=== PATIENT | female | born 1995 | race Caucasian/White ===

== ENCOUNTER 2018-07-08 19:20 | Inpatient (IN) ==
[2018-07-08] MEDS ORDERED: Naloxone Inj 0.4 MG/ML Vial IV.PUSH PRN (20:31)
[2018-07-08] MEDS ORDERED: Sodium Chlor 0.9% Inj 500 ML IV.SIG PRN (20:31)
[2018-07-08] MEDS ORDERED: Sod Chloride 0.9% Inj 1,000 ML IV.CONT PRN (20:31)
[2018-07-08] MEDS ORDERED: Oxytocin 30 Units/500ml Premix 30 UNITS/500 ML BAG IV.SIG ONE (20:31)
[2018-07-08] MEDS ORDERED: fentaNYL Citrate Inj 100 MCG/2 ML Ampul IV.PUSH PRN ×2 (20:31)
--- NOTE | 2018-07-08 20:31 | ED ---
History of Present Illness Primary Care Physician: NOT REQUIRED Chief Complaint: labor induction History of Present Illness: 22-year-old female at 40/6 weeks gestation, who is otherwise healthy, presents to the OB ED for induction of labor. Patient denies feeling contractions, gush of fluid, vaginal bleeding or decreased movement. Denies headache, sudden change in vision, nausea, vomiting, abdominal pain, dysuria, leg pain or swelling. OB history: No complications during this . labs negative. GBS negative. Past medical history: Remote history of chlamydia with test of cure. Medications: PNV Allergies: None Hospitalizations: None Surgical history: None Family history: Mother and father both alive and healthy. Half brother, healthy. Social history: Non-smoker. Denies alcohol or drug use during this , however stated in history PCP: Dr. Kwok Weeks Gestation:: 40 Para: 0 : 1 - Inpatient Certification I certify that the inpatient services were ordered in accordance with Medicare regulations governing the order. This includes certification that hospital inpatient services are reasonable and necessary and in the case of services not specified as inpatient-only under 42 CFR 419.22(n), that they are appropriately provided as inpatient services in accordance to with the 2-midnight benchmark under 43 CFR 412.3(e) Review of Systems Constitutional: Denies fever(s), Denies headache(s) Eyes: Reports blurry vision, Reports requires corrective lenses, Denies change in vision Ears, Nose, Mouth, and Throat: Denies sore throat Cardiovascular: Denies chest pain, Denies leg swelling Respiratory: Denies cough, Denies shortness of breath Gastrointestinal: Denies abdominal pain, Denies nausea, Denies vomiting Genitourinary: Denies difficulty urinating, Denies painful urination, Denies vaginal discharge PMFSH - History History Provided By: Patient, Family Member - Medical / Surgical Hx Neg / Unobtainable Medical Problems Denied: Yes Surgical History: No Previous Surgery - Social History I have reviewed the patient's Social History: Yes - Tobacco History Second Hand Smoke Exposure: No Smoking Status: Former smoker - Alcohol History How Often Do You Have a Drink Containing Alcohol: Never - Substance Use History 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 SKIN: Warm and dry. HEAD: Normocephalic and atraumatic. EYES: No scleral icterus. No injection or drainage. ENT: No nasal drainage noted. Airway patent. CARDIOVASCULAR: Regular rate and rhythm without murmur. RESPIRATORY: Breath sounds equal bilaterally. No accessory muscle use. ABDOMEN/GI: Abdomen soft, non-tender, bowel sounds present, no rebound, no guarding Gravid to 40 weeks size GENITOURINARY: Cervix: Middle Dilatation: 3 Effacement: 30% Station: -3 Membranes: intact Uterine Contractions: every 5-7 mins FHT's: Category: 1 Baseline: 130s Reactive: Yes Variability: Moderate Decels: None, occasional accelerations EXTREMITIES: No cyanosis or edema. BACK: Nontender without obvious deformity. No CVA tenderness. NEUROLOGICAL: Awake and alert. Motor and sensory grossly within normal limits. Five out of 5 muscle strength in all muscle groups. Normal speech. Results - Labs CBC & Chem 7: 07/08/18 19:45 Assessment and Plan - Diagnosis (1) 40 weeks gestation of Code(s): Z3A.40 - 40 weeks gestation of Status: Acute (2) Elective induction of labor planned Status: Acute - Plan 22-year-old at 40/6 weeks gestation presents for induction of labor. -Continuous monitoring showed FHT category 1, reassuring. -Cervical check: 10/15/-3 -Admit to labor and delivery for expectant management SDW Dr. Shah OB hospitalist, Dr. Manley Discharge Plan - Physicians Team Primary Care Provider: NOT REQUIRED, Attending Provider: Martha Manley - Rxs /Orders / Referrals /Forms Prescriptions: No Action Multivitamins 1 tab PO DAILY Referrals: NOT REQUIRED, [Primary Care Provider] - See Instructions
[2018-07-08] MEDS ORDERED: Citric Acid/Sodium Citrate Liq 30 ML UDC PO SCH (20:45)
[2018-07-08 21:00] LABS: Baso # (Auto) 0.1 th/mm3 (0.0-0.2); Baso % (Auto) 0.5 % (0.0-2.0); Eos # (Auto) 0.2 th/mm3 (0.0-0.4); Eos % (Auto) 1.4 % (0.0-4.0); Hematocrit 36.1 % (35.0-46.0); Hemoglobin 12.3 gm/dL (11.6-15.3); Lymph # (Auto) 2.1 th/mm3 (1.0-4.8); Lymph % (Auto) 17.8 % (9.0-44.0); Mean Corpuscular HGB Conc 34.1 % (32.0-36.0); Mean Corpuscular Hemoglobin 31.5 pg (27.0-34.0); Mean Corpuscular Volume 92.3 fL (80.0-100.0); Mean Platelet Volume 10.2 fL (7.0-11.0); Mono # (Auto) 0.8 th/mm3 (0.0-0.9); Neut # (Auto) 8.5 th/mm3 (1.8-7.7); Neut % (Auto) 73.3 % (16.0-70.0); Platelet Count 199 th/mm3 (150-450); Red Blood Count 3.91 mil/mm3 (4.00-5.30); Red Cell Distribution Width 13.6 % (11.6-17.2); White Blood Count 11.6 th/mm3 (4.0-11.0)
[2018-07-08 21:17] LABS: Amorphous Sediment,Urine Rare /hpf; Bacteria,Urine Rare /hpf; Bilirubin,Urine Negative (Negative); Clarity,Urine Cloudy (Clear); Color,Urine Yellow (Yellw/Straw); Glucose,Urine (UA) Negative (Negative); Leukocyte Esterase,Urine Large (Negative); Mucus,Urine Few /lpf (Occasional); Nitrite,Urine Negative (Negative); Specific Gravity,Urine 1.008 (1.002-1.035); Squamous Epithelial Cell,Urine 13 /hpf (0-5)
[2018-07-09] MEDS ORDERED: Oxytocin 30 Units/500ml Premix 30 UNITS/500 ML BAG IV.SIG PRN (10:53)
--- NOTE | 2018-07-09 10:53 | P.OBLABOR ---
Subjective Interval history: 22 yo in labor, feels well, no concerns Objective Vital Signs: Vital Signs - 8 hr 07/09/18 06:38 07/09/18 08:01 Temperature 98.8 F Pulse Rate 92 H 90 Respiratory Rate 18 Blood Pressure 100/65 108/65 Objective: Pelvic Exam: Cervix: [-] Dilatation: [-] Effacement: [-] Station: [-] Presentation: [-] Membranes: [intact or ruptured] Uterine Contractions: [-] FHT's: Category: [-] Baseline: [-] Reactive: [-] Variability: [-] Decels: [-] Patient Started Active Labor: Yes Medical Induction of Labor: Yes (Cytotec) Artificial Rupture of Membrane: Yes Artificial ROM Date: 07/09/18 Artificial ROM Time: 10:45 Assessment and Plan - Diagnosis (1) 40 weeks gestation of Code(s): Z3A.40 - 40 weeks gestation of Status: Acute (2) Elective induction of labor planned Status: Acute - Plan 22-year-old at 40/6 weeks gestation presents for induction of labor. -Continuous monitoring showed FHT category 1, reassuring. -Cervical check: 4-/-2 -AROM performed with clear fluid -Start oxytocin 08/20/29 protocol
[2018-07-09] MEDS ORDERED: fentaNYL 2MCG-Bupiv 0.125% Epi 150 ML EPIDURAL ONE (11:00)
[2018-07-09] MEDS ORDERED: fentaNYL Citrate Inj 100 MCG/2 ML Ampul EPIDURAL ONE (19:17)
[2018-07-09] MEDS ORDERED: fentaNYL 2MCG-Bupiv 0.125% Epi 150 ML EPIDURAL PRN (19:17)
[2018-07-09] MEDS ORDERED: Bisacodyl 10 MG Supp RECTAL PRN (22:56)
[2018-07-09] MEDS ORDERED: Naloxone Inj 0.4 MG/ML Vial IV.PUSH PRN (22:56)
[2018-07-09] MEDS ORDERED: Benzocaine 20% Top Spray 60 ML Can TOPICAL PRN (22:56)
[2018-07-09] MEDS ORDERED: Oxytocin 30 Units/500ml Premix 30 UNITS/500 ML BAG IV.CONT PRN (22:56)
[2018-07-09] MEDS ORDERED: Witch Hazel 50%/Glyderin 12.5% 40 Pad Jar RECTAL PRN (22:56)
[2018-07-09] MEDS ORDERED: Zolpidem Tartrate 5 MG Tablet PO PRN (22:56)
--- NOTE | 2018-07-09 23:08 | P.OBDELI ---
Weeks Gestation: 41 Medical Induction of Labor: Yes (Cytotec, Pitocin) Artificial ROM Date: 07/09/18 Artificial ROM Time: 11:45 Anesthesia: Epidural Episiotomy: none Vaginal Delivery: Normal Presentation: Occiput anterior Nuchal Cord: None Placenta: Spontaneous delivery Laceration: 2 deg Repair: Chromic running Estimated blood loss (mL): 200 Infant: Male Infant Delivery Date: 07/09/18 Infant Delivery Time: 22:08 Weight: 3.125 kg score (1 min): 8 score (5 min): 9 Additional Information: Attending myself - Dr. Garcia in attendance of delivery and repair
[2018-07-10] MEDS ORDERED: Measles/Mumps/Rubella Vaccine Inj 0.5 ML Vial SQ ONE (06:00)
[2018-07-10] MEDS ORDERED: Diphtheria/Tetanus/Pertussis Vaccine Inj 0.5 ML Syringe IM ONE (06:00)
--- NOTE | 2018-07-10 07:59 | P.PNOB ---
Subjective Post day: 1 Interval history: 22 yo s/p vaginal delivery at 41 weeks gestation (induced for dates). Feeling well just sleepy. No CP/SOB. No N/V, tolerating diet. Ambulating without difficulty. Breast feeding and bonding well with baby. VB moderate and improving. Pain well controlled. Objective Vital Signs/I&O: Vital Signs 07/09/18 08:01 07/09/18 10:46 07/09/18 11:39 Temperature 99.2 F Pulse Rate 90 96 H Respiratory Rate Blood Pressure 108/65 131/90 07/09/18 12:45 07/09/18 13:15 07/09/18 13:30 Temperature Pulse Rate 104 H 102 H 92 H Respiratory Rate Blood Pressure 119/84 118/94 H 122/76 07/09/18 13:37 07/09/18 13:46 07/09/18 13:55 Temperature Pulse Rate 98 H 100 H 96 H Respiratory Rate Blood Pressure 138/91 H 130/73 122/76 07/09/18 13:58 07/09/18 14:10 07/09/18 14:15 Temperature Pulse Rate 90 92 H 91 H Respiratory Rate Blood Pressure 125/80 130/74 127/78 07/09/18 14:25 07/09/18 14:40 07/09/18 14:45 Temperature Pulse Rate 87 91 H 91 H Respiratory Rate Blood Pressure 133/80 110/65 07/09/18 15:00 07/09/18 15:15 07/09/18 15:55 Temperature 98.3 F Pulse Rate 85 84 91 H Respiratory Rate Blood Pressure 107/53 L 104/59 L 116/70 07/09/18 16:35 07/09/18 16:45 07/09/18 17:05 Temperature Pulse Rate 87 84 93 H Respiratory Rate Blood Pressure 115/74 122/79 123/80 07/09/18 17:35 07/09/18 17:43 07/09/18 18:15 Temperature 98.8 F Pulse Rate 89 133 H Respiratory Rate Blood Pressure 113/88 132/89 07/09/18 18:30 07/09/18 18:45 07/09/18 19:05 Temperature Pulse Rate 58 L 82 161 H Respiratory Rate 18 Blood Pressure 115/85 144/79 H 130/94 H 07/09/18 19:08 07/09/18 19:55 12/22/18 20:10 Temperature 99.4 F Pulse Rate 96 H 106 H Respiratory Rate Blood Pressure 113/64 07/09/18 20:40 07/09/18 21:25 07/09/18 21:40 Temperature Pulse Rate 86 110 H 90 Respiratory Rate Blood Pressure 124/52 L 07/09/18 21:57 07/09/18 23:15 07/09/18 23:16 Temperature 101.0 F H 101.3 F H Pulse Rate 109 H Respiratory Rate 18 Blood Pressure 123/71 07/09/18 23:30 07/09/18 23:45 07/10/18 00:00 Temperature Pulse Rate 106 H 91 H 91 H Respiratory Rate 18 Blood Pressure 125/60 139/70 126/75 07/10/18 00:15 07/10/18 01:06 07/10/18 02:15 Temperature 99.2 F 99.5 F Pulse Rate 91 H 69 Respiratory Rate 18 Blood Pressure 134/76 124/77 07/10/18 04:00 Temperature 99.1 F Pulse Rate Respiratory Rate Blood Pressure Result Diagrams: 07/08/18 19:45 Objective Remarks: GENERAL: Well-nourished, well-developed patient. CARDIOVASCULAR: Regular rate and rhythm without murmurs, gallops, or rubs. RESPIRATORY: Breath sounds equal bilaterally. No accessory muscle use. ABDOMEN/GI: Abdomen soft, non-tender. Fundus: Firm, non-tender at umbilicus. GENITOURINARY: Light to moderate bleeding. EXTREMITIES: No cyanosis or edema, non-tender, without signs of DVT. Medications and IVs: Active Medications Acetaminophen (Tylenol) 650 mg PO Q4H PRN PRN Reason: PAIN SCALE 1 TO 2 Al Hydroxide/Mg Hydroxide (Milk Of Magnesia Liq) 30 ml PO Q12H PRN PRN Reason: Mild Constipation Benzocaine (Americaine 20% [place]) 1 spray TOPICAL Q4H PRN PRN Reason: For Perineum Discomfort Last Admin: 07/10/18 02:14 Dose: 1 spray Bisacodyl (Dulcolax Supp) 10 mg RECTAL DAILY PRN PRN Reason: SEVERE CONSITIPATION Cephalexin Monohydrate (Keflex) 500 mg PO Q12H LOU Last Admin: 07/09/18 23:30 Dose: 500 mg Ephedrine Sulfate (Ephedrine/Ns Syringe) 10 mg IV.PUSH UNSCH PRN PRN Reason: SEE LABEL COMMENTS Stop: 07/10/18 19:17 Oxytocin (Pitocin 30 Units/Ns 500 Ml Premix) 30 units in 500 mls @ 2 mls/hr IV.SIG TITRATE PRN; Protocol PRN Reason: For induction of labor Last Admin: 07/09/18 11:42 Dose: 2 milliunit/min, 2 mls/hr Fentanyl/Bupivacaine/Sodium Chlor (Fentanyl 2 Mcg-Bupiv 0.125% Epi) 150 mls @ 10 mls/hr EPIDURAL PRN PRN PRN Reason: for Labor Pain Last Admin: 07/09/18 19:15 Dose: 10 mls/hr Oxytocin (Pitocin 30 Units/Ns 500 Ml Premix) 30 units in 500 mls @ 100 mls/hr IV.CONT UNSCH PRN PRN Reason: Heavy bleeding Ibuprofen (Motrin) 800 mg PO Q8H PRN PRN Reason: For Cramping Last Admin: 07/10/18 02:12 Dose: 800 mg Lactulose (Lactulose Liq) 30 ml PO DAILY PRN PRN Reason: SEVERE CONSITIPATION Miscellaneous Information (Misc Nursing Information) 1 each OTHER UNSCH LOU Stop: 07/10/18 20:30 Misoprostol (Cytotec) 25 mcg VAGINAL UNSCH X1 PRN PRN Reason: For cervical ripening Last Admin: 07/09/18 02:30 Dose: 25 mcg Naloxone HCl (Narcan Inj) 0.1 mg IV.PUSH Q2M PRN PRN Reason: for opiate reversal Naloxone HCl (Narcan Inj) 0.1 mg IV.PUSH Q2M PRN PRN Reason: for opiate reversal Ondansetron HCl (Zofran Odt) 4 mg PO Q6H PRN PRN Reason: NAUSEA OR VOMITING Oxycodone/Acetaminophen (Percocet 5/325 Mg) 2 tab PO Q4H PRN PRN Reason: PAIN SCALE 6 TO 10 Oxycodone/Acetaminophen (Percocet 5/325 Mg) 1 tab PO Q4H PRN PRN Reason: PAIN SCALE 3 TO 5 Senna/Docusate Sodium (Valeria-Colace) 1 tab PO BID LOU Sennosides (Senokot) 17.2 mg PO Q12H PRN PRN Reason: Moderate Constipation Sodium Chloride (Ns Flush) 2 ml IV.FLUSH BID LOU Last Admin: 07/09/18 23:20 Dose: Not Given Sodium Chloride (Ns Flush) 2 ml IV.FLUSH PRN PRN PRN Reason: FLUSH AFTER USING IV ACCESS Sodium Chloride (Ns Flush) 2 ml IV.FLUSH BID LOU Sodium Chloride (Ns Flush) 2 ml IV.FLUSH PRN PRN PRN Reason: FLUSH AFTER USING IV ACCESS Witch Sandra/Glycerin (Tucks Pads) 1 applicatio RECTAL QID PRN PRN Reason: HEMORRHOIDS Last Admin: 07/10/18 02:14 Dose: 1 applicatio Zolpidem Tartrate (Ambien) 5 mg PO HS PRN PRN Reason: SLEEP Assessment and Plan - Diagnosis (1) care following vaginal delivery Code(s): Z39.2 - Encounter for routine follow-up Status: Acute (2) 40 weeks gestation of Code(s): Z3A.40 - 40 weeks gestation of Status: Resolved (3) Elective induction of labor planned Status: Resolved - Plan 22-year-old s/p IVD at 41 weeks - 2nd degree lac healing well - AFVSS - Had intrapartum fever to 101, receiving Keflex 500 mg BID for now, no subsequent fevers - Motrin + Percocet PRN for pain - Pelvic rest x 6 weeks - Contraception: TBD - Ambulate as tuan
[2018-07-10] MEDS: Senna/Docusate Sodium 8.6/50 MG Tablet PO SCH ×2 (10:11→22:58)
[2018-07-10] MEDS: Acetaminophen 325 MG Tablet PO PRN ×2 (17:54→23:03)
--- NOTE | 2018-07-11 08:23 | P.PNOB ---
Subjective Post day: 2 Interval history: 22 yo s/p induced vaginal delivery at 41 weeks. This morning feels well. Pain well controlled with ibuprofen. Bleeding same as a period and decreasing. No fever/chills. No difficulty ambulating. Tolerating diet. Breast feeding and bonding well with baby. Objective Vital Signs/I&O: Vital Signs 07/10/18 08:23 07/10/18 18:05 07/10/18 20:05 Temperature 98.1 F 98.0 F 98.5 F Pulse Rate 83 97 H Respiratory Rate 16 20 Blood Pressure 111/64 133/77 Result Diagrams: 07/08/18 19:45 Objective Remarks: GENERAL: Well-nourished, well-developed patient. CARDIOVASCULAR: Regular rate and rhythm without murmurs, gallops, or rubs. RESPIRATORY: Breath sounds equal bilaterally. No accessory muscle use. ABDOMEN/GI: Abdomen soft, non-tender. Fundus: Firm, non-tender at 2 cm below umbilicus. GENITOURINARY: Light to moderate bleeding. EXTREMITIES: No cyanosis or edema, non-tender, without signs of DVT. Medications and IVs: Active Medications Acetaminophen (Tylenol) 650 mg PO Q4H PRN PRN Reason: PAIN SCALE 1 TO 2 Last Admin: 07/10/18 23:03 Dose: 650 mg Al Hydroxide/Mg Hydroxide (Milk Of Devin Marie[place]) 30 ml PO Q12H PRN PRN Reason: Mild Constipation Benzocaine (Americaine 20% Top [place]) 1 spray TOPICAL Q4H PRN PRN Reason: For Perineum Discomfort Last Admin: 07/10/18 02:14 Dose: 1 spray Bisacodyl (Dulcolax Supp) 10 mg RECTAL DAILY PRN PRN Reason: SEVERE CONSITIPATION Cephalexin Monohydrate (Keflex) 500 mg PO Q12H LOU Last Admin: 07/10/18 22:58 Dose: 500 mg Oxytocin (Pitocin 30 Units/Ns 500 Ml Premix) 30 units in 500 mls @ 2 mls/hr IV.SIG TITRATE PRN; Protocol PRN Reason: For induction of labor Last Admin: 07/09/18 11:42 Dose: 2 milliunit/min, 2 mls/hr Fentanyl/Bupivacaine/Sodium Chlor (Fentanyl 2 Mcg-Bupiv 0.125% Epi) 150 mls @ 10 mls/hr EPIDURAL PRN PRN PRN Reason: for Labor Pain Last Admin: 07/09/18 19:15 Dose: 10 mls/hr Oxytocin (Pitocin 30 Units/Ns 500 Ml Premix) 30 units in 500 mls @ 100 mls/hr IV.CONT UNSCH PRN PRN Reason: Heavy bleeding Ibuprofen (Motrin) 800 mg PO Q8H PRN PRN Reason: For Cramping Last Admin: 07/10/18 17:54 Dose: 800 mg Lactulose (Lactulose Liq) 30 ml PO DAILY PRN PRN Reason: SEVERE CONSITIPATION Misoprostol (Cytotec) 25 mcg VAGINAL UNSCH X1 PRN PRN Reason: For cervical ripening Last Admin: 07/09/18 02:30 Dose: 25 mcg Naloxone HCl (Narcan Inj) 0.1 mg IV.PUSH Q2M PRN PRN Reason: for opiate reversal Naloxone HCl (Narcan Inj) 0.1 mg IV.PUSH Q2M PRN PRN Reason: for opiate reversal Ondansetron HCl (Zofran Odt) 4 mg PO Q6H PRN PRN Reason: NAUSEA OR VOMITING Oxycodone/Acetaminophen (Percocet 5/325 Mg) 2 tab PO Q4H PRN PRN Reason: PAIN SCALE 6 TO 10 Oxycodone/Acetaminophen (Percocet 5/325 Mg) 1 tab PO Q4H PRN PRN Reason: PAIN SCALE 3 TO 5 Senna/Docusate Sodium (Valeria-Colace) 1 tab PO BID [facility] Last Admin: 07/10/18 22:58 Dose: 1 tab Sennosides (Senokot) 17.2 mg PO Q12H PRN PRN Reason: Moderate Constipation Sodium Chloride (Ns Flush) 2 ml IV.FLUSH BID [facility] Last Admin: 07/11/18 00:16 Dose: Not Given Sodium Chloride (Ns Flush) 2 ml IV.FLUSH PRN PRN PRN Reason: FLUSH AFTER USING IV ACCESS Sodium Chloride (Ns Flush) 2 ml IV.FLUSH BID [facility] Last Admin: 07/11/18 00:17 Dose: Not Given Sodium Chloride (Ns Flush) 2 ml IV.FLUSH PRN PRN PRN Reason: FLUSH AFTER USING IV ACCESS Witch Sandra/Glycerin (Tucks Pads) 1 applicatio RECTAL QID PRN PRN Reason: HEMORRHOIDS Last Admin: 07/10/18 02:14 Dose: 1 applicatio Zolpidem Tartrate (Ambien) 5 mg PO HS PRN PRN Reason: SLEEP Assessment and Plan - Diagnosis (1) care following vaginal delivery Code(s): Z39.2 - Encounter for routine follow-up Status: Acute - Plan 22-year-old s/p IVD at 41 weeks - 2nd degree lac healing well - AFVSS - Had intrapartum fever to 101 right before delivery, got Keflex 500 mg BID, no subsequent fevers, no clinical signs of chorioamnionitis/endometritis, will discontinue antibiotics - Motrin PRN for pain - Pelvic rest x 6 weeks - Contraception: TBD - Ambulate as tuan Discharge Planning: Home today
[2018-07-11 08:40] VITALS: BP 110/69; PULSE 88; RESP 18; TEMP 98
== END 2018-07-11 12:08 | disposition home or self-care (01) ==
LOC: H2E 19:20 → H1EA 07-10 01:03
PROVIDERS: ADMIT Obstetrics & Gynecology; ATTEND Obstetrics & Gynecology